=== PATIENT | female | born 1975 | race Caucasian/White ===

== ENCOUNTER 2017-05-25 19:18 | Emergency (ER) | payer OTHER ==
[~2017-05-25] VITALS: Ht 172.7 cm; Wt 79.4 kg
[2017-05-25] MEDS ORDERED: LIDOCAINE 1% PF 30 ML VIAL. INJ ONE (20:00)
[2017-05-25 20:37] VITALS: BP 132/79
--- NOTE | 2017-05-25 20:59 | ED.ADGEN ---
Adult General Chief Complaint Chief Complaint dog bite [facility] HPI pt is a home health nurse. she went to pt's house and pt's dog attacked her on the porch. dog has had immunizations and did not appear sick. she has a bruise to left calf with a 3mm lac Review of Systems Review of Systems Constitutional: Denies fever or chills [] Eyes: Denies change in visual acuity, redness, or eye pain [] HENT: Denies nasal congestion or sore throat [] Respiratory: Denies cough or shortness of breath [] Cardiovascular: No additional information not addressed in HPI [] GI: Denies abdominal pain, nausea, vomiting, bloody stools or diarrhea [] : Denies dysuria or hematuria [] Musculoskeletal: bruising and lac to left calf Integument: Denies rash or skin lesions [] Neurologic: Denies headache, focal weakness or sensory changes [] Endocrine: Denies polyuria or polydipsia [] Current Medications Current Medications Current Medications Medications (Trade) Dose Ordered Sig/Lissett Start Time Stop Time Status Last Admin Dose Admin Diphtheria/ Tetanus/Acell Pertussis (Boostrix) 0.5 ml ONCE ONCE 05/25/17 21:30 05/25/17 21:30 DC 05/25/17 20:45 0.5 ML Lidocaine HCl 30 ml 1X ONCE 05/25/17 20:00 05/25/17 20:01 DC 05/25/17 20:00 30 ML Tetanus/ Diphtheria Toxoids Adsorbed (Tenivac Vial) 0.5 ml ONCE ONCE 05/25/17 21:00 05/25/17 21:07 DC Allergies Allergies Allergies Coded Allergies Type Severity Reaction Last Updated Verified No Known Drug Allergies 05/25/17 No Physical Exam Physical Exam Constitutional: Well developed, well nourished, no acute distress, non-toxic appearance. [] HENT: Normocephalic, atraumatic, bilateral external ears normal, oropharynx moist, no oral exudates, nose normal. [] Eyes: PERRLA, EOMI, conjunctiva normal, no discharge. [] Neck: Normal range of motion, no tenderness, supple, no stridor. [] Cardiovascular:Heart rate regular rhythm, no murmur [] Lungs & Thorax: Bilateral breath sounds clear to auscultation [] Abdomen: Bowel sounds normal, soft, no tenderness, no masses, no pulsatile masses. [] Skin: sunburn to all of body, 1st degree. she has peeling skin over midline chest. still few blisters in this area. no other blistering seen on body. arms and legs with 1st degree burn. [] Back: No tenderness, no CVA tenderness. [] Extremities: , no clubbing, ROM intact, swelling, ecchymosis to left calf with a 1inch x 1 inch area of abrasions with a 3 mm superficial lac Neurologic: Alert and oriented X 3, normal motor function, normal sensory function, no focal deficits noted. [] Psychologic: Affect normal, judgement normal, mood normal. [] Current Patient Data Vital Signs Vital Signs Date Time Temp Pulse Resp B/P (MAP) Pulse Ox O2 Delivery O2 Flow Rate FiO2 05/25/17 19:18 98.2 98 18 98 Room Air EKG EKG [] Radiology/Procedures Radiology/Procedures placed 4 cc of 1% lidocain around abrasions and lac. flushed with 80cc NS. 3mm lac is superficial so no repair. wound cleansing to area as described. 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 she states she knows what to watch for in terms of infection. she is requesting silvadene for sunburn as she is almost out. Final Impression Final Impression dog bite[] Problems: Dragon Disclaimer Dragon Disclaimer This electronic medical record was generated, in whole or in part, using a voice recognition dictation system. Departure Time of Disposition: 20:58 Disposition: HOME, SELF-CARE Condition: IMPROVED Patient Instructions: Animal Bite Additional Instructions: clean daily with soap and water, apply antibiotic ointment and keep covered. return if any sign of infection. take augmentin to avoid infection. tylenol and ibuprofen for pain. DESTINY MARK MD May 25, 2017 20:59
[2017-05-25] MEDS ORDERED: TETANUS AND DIPHTHERIA TOX/PF 0.5 ML VIAL. VAX IM ONE (21:00)
[2017-05-25] MEDS ORDERED: DIPHTH,PERTUSS(ACELL),TET TOX 0.5 ML DISP.SYRIN. VAX IM ONE (21:30)
== END 2017-05-25 21:07 | disposition home or self-care (01) ==
LOC: ER 19:18
DX: S81.812A Laceration without foreign body, left lower leg, initial encounter (principal); W54.0XXA Bitten by dog, initial encounter; Y93.89 Activity, other specified; Y99.8 Other external cause status; Y92.89 Other specified places as the place of occurrence of the external cause
CPT/HCPCS: 90471; 90715; 96372; 99284; J2001

== ENCOUNTER 2020-10-18 17:12 | Emergency (ER) | payer BC, OTHER ==
[~2020-10-18] VITALS: Ht 172.7 cm; Wt 70.0 kg
--- NOTE | 2020-10-18 17:29 | PHYS DOC ---
Past History Past Medical History: No Pertinent History (JAUN CALDWELL MD) Past Surgical History: (JUAN CALDWELL MD) Alcohol Use: Occasionally Drug Use: None (JUAN CALDWELL MD) General Adult EDM: Chief Complaint: ABDOMINAL PAIN HPI: HPI: Patient is a 45-year-old female who presents with chief complaint of epigastric pain. Patient has epigastric pain that radiates to her back that is 10 out of 10 and worse with palpation and certain movements that began yesterday. Patient has a history of peptic ulcer disease and was seen by her roll hand and for evaluation. Patient has nausea but no vomiting. Patient has chronic diarrhea. Patient has any fevers, chills or cough. (JUAN CALDWELL MD) Review of Systems: Review of Systems: Constitutional: Denies fever or chills Eyes: Denies change in visual acuity HENT: Denies nasal congestion or sore throat Respiratory: Denies cough or shortness of breath Cardiovascular: Denies chest pain or edema GI: Complains abdominal pain, nausea and diarrhea : Denies dysuria Musculoskeletal: Complains of back pain or joint pain Integument: Denies rash Neurologic: Denies headache, focal weakness or sensory changes Endocrine: Denies polyuria or polydipsia Lymphatic: Denies swollen glands Psychiatric: Denies depression or anxiety (JUAN CALDWELL MD) Allergies: Allergies: Allergies Coded Allergies Type Severity Reaction Last Updated Verified No Known Drug Allergies 05/25/17 No (JUAN CALDWELL MD) Physical Exam: PE: Constitutional: Well developed, well nourished, appears uncomfortable HENT: Normocephalic, atraumatic, bilateral external ears normal, no trismus nose normal. [] Eyes: PERRLA, EOMI, conjunctiva normal, no discharge. [] Neck: Normal range of motion, no tenderness, supple, no stridor. [] Cardiovascular:Heart rate regular rhythm, no murmur [] Lungs & Thorax: Bilateral breath sounds clear, no respiratory distress Abdomen soft with epigastric tenderness without guarding or rebound, no masses, no pulsatile masses. [] Skin: Warm, dry, no erythema, no rash. [] Back: No tenderness, no CVA tenderness. [] Extremities: No tenderness, no cyanosis, no clubbing, ROM intact, no edema. [] Neurologic: Alert and oriented X 3, normal motor function, normal sensory function, no focal deficits noted. [] Psychologic: Affect normal, judgement normal, mood normal. [] (JUAN CALDWELL MD) EKG: EKG: [] (JUAN CALDWELL MD) Radiology/Procedures: Radiology/Procedures: [] (JUAN CALDWELL MD) Radiology/Procedures: History: Reason: epigastric pain / Spl. Instructions: / History: Comparison: None. Technique: After administration of intravenous contrast, helical CT of the abdomen and pelvis was performed from the lung bases through the ischial tuberosities. Coronal and sagittal reconstructions were obtained. 75 mL of Omnipaque 350 were used. One or more of the following dose reduction techniques were utilized: Automated exposure control (AEC), Adjustment of mA and/or kV according to patient size, Use of iterative reconstruction technique such as ASiR, CT scan done according to ALARA and image gently/image wisely Abdomen Findings: The visualized lung bases are clear. Focal fatty hepatic infiltration along the falciform ligament. The liver, gallbladder, pancreas, spleen, and bilateral adrenal glands are otherwise normal. Symmetric renal enhancement. There is no focal renal mass. There is no hydronephrosis. The visualized loops of small bowel are normal. The visualized loops of large bowel are normal. There is no evidence of bowel obstruction. Appendix is not seen. Moderate to large colonic stool burden. There is no free fluid. There is no mesenteric or retroperitoneal adenopathy. The abdominal aorta is normal in caliber. Pelvis Findings: Urinary bladder is normal. Uterus is present. No pelvic free fluid. There is no pelvic or inguinal adenopathy. There is no acute bony abnormality. IMPRESSION: 1. No acute findings. 2. Moderate to large colonic stool burden. Electronically signed by: Juan Seaman MD (10/18/2020 7:48 PM) [facility] (DEREK SCOTT DO) Heart Score: Risk Factors: Risk Factors: DM, Current or recent (<one month) smoker, HTN, HLP, family history of CAD, obesity. Risk Scores: Score 0 - 3: 2.5% MACE over next 6 weeks - Discharge Home Score 4 - 6: 20.3% MACE over next 6 weeks - Admit for Clinical Observation Score 7 - 10: 72.7% MACE over next 6 weeks - Early Invasive Strategies (JUAN CALDWELL MD) Course & Med Decision Making: Course & Med Decision Making Pertinent Labs and Imaging studies reviewed. (See chart for details) [] Care will be signed over to Dr. Seaman with labs, CT and disposition pending (JUAN CALDWELL MD) Course & Med Decision Making Comprehensive signout obtained from off going physician I personally saw patient and repeated certain aspects of history and physical exam. There is great concern by myself and patient's outpatient roll hand for pancreatitis. CT imaging pursued and ultimately significant for moderate to severe constipation which is likely source of patient's presenting symptoms. Patient has history of this in the past, states she has had poor p.o. intake, poor p.o. fiber intake and stopped taking advised supplements Joint decision to discharge with close outpatient PCP and roll hand follow-up. Patient has EGD and colonoscopy scheduled October 28 which I advised her to keep. Increase p.o. water intake, goal of at least 10 g daily fiber and implementation of Metamucil daily advised Strict return precautions were discussed with good understanding by patient, all questions and concerns addressed prior to ER departure in stable condition (DEREK SCOTT DO) Dragon Disclaimer: Dragon Disclaimer: This electronic medical record was generated, in whole or in part, using a voice recognition dictation system. (JUAN CALDWELL MD) Departure Departure: Impression: Primary Impression: Abdominal pain Additional Impression: Constipation Disposition: DC HOME SELF CARE/HOMELESS Condition: STABLE Referrals: JUAN AMATO MD (PCP) Patient Instructions: Abdominal Pain (Nonspecific), Constipation, Adult Additional Instructions: You were seen for abdominal pain with source likely being constipation based on CT imaging. Make sure to drink plenty of fluids and eat lots of fruits and vegetables. Please aim to ingest at least 10 g of fiber daily. You should use miralax daily to help your bowel movements become more regular. I have discussed your case with your roll hand, please call his office first thing Wednesday morning to follow-up on ER visit this evening and discuss next steps in care. I would advise you to keep your upcoming colonoscopy and EGD as scheduled October 28, 2020. Return to the ED if you develop abdominal pain, fever, black/bloody stools, vomiting, or any other new or concerning symptoms. JUAN CALDWELL MD Oct 18, 2020 17:29 DEREK SCOTT DO Oct 18, 2020 20:21
[2020-10-18] MEDS ORDERED: MORPHINE SULFATE 4 MG/ML DISP.SYRIN. IV ONE (17:30)
[2020-10-18] MEDS ORDERED: ONDANSETRON PF 4 MG/2 ML VIAL. IVP ONE (17:30)
[2020-10-18] MEDS ORDERED: IV NORMAL SALINE 1,000ML 1,000 ML IV ONE (17:30)
[2020-10-18] MEDS ORDERED: HYDROmorphone PF 1 MG/ML DISP.SYRIN IVP ONE (18:45)
[2020-10-18] MEDS ORDERED: IOHEXOL 300 MG/ML 75 ML VIAL. IV ONE (18:45)
[2020-10-18 18:50] VITALS: BP 129/79
[2020-10-18] MEDS ORDERED: CONTRAST GIVEN. MC PRN (19:00)
[2020-10-18] MEDS ORDERED: diphenhydrAMINE 50 MG/ML VIAL ONE (19:02)
[2020-10-18 19:11] LABS: BASO # 0.1 x10^3/uL (0.0-0.2); BASO % 1 % (0-3); EOS # 0.2 x10^3/uL (0.0-0.7); EOS % 2 % (0-3); HEMATOCRIT 40.9 % (36.0-47.0); HEMOGLOBIN 13.4 g/dL (12.0-15.5); LYMPH # 3.5 x10^3/uL (1.0-4.8); LYMPH % 32 % (24-48); MEAN CORPUSCULAR HEMOGLOBIN 31 pg (25-35); MEAN CORPUSCULAR HGB CONC 33 g/dL (31-37); MEAN CORPUSCULAR VOLUME 94 fL (79-100); MONO # 0.8 x10^3/uL (0.0-1.1); MONO % 7 % (0-9); NEUT # 6.4 x10^3uL (1.8-7.7); NEUT % 59 % (31-73); PLATELET COUNT 296 x10^3/uL (140-400); RED BLOOD COUNT 4.37 x10^6/uL (3.50-5.40); RED CELL DISTRIBUTION WIDTH 13.5 % (11.5-14.5); WHITE BLOOD COUNT 10.9 x10^3/uL (4.0-11.0)
[2020-10-18] MEDS ORDERED: diphenhydrAMINE 50 MG/ML VIAL IVP ONE ×2 (19:15→20:15)
[2020-10-18 19:19] LABS: CALCIUM 8.8 mg/dL (8.5-10.1); CREATININE 0.7 mg/dL (0.6-1.0); GFR 91.3; POTASSIUM 3.9 mmol/L (3.5-5.1)
[2020-10-18 19:20] LABS: PREG TEST PT QUAL NEGATIVE (NEG)
[2020-10-18 19:24] LABS: ALBUMIN 3.7 g/dL (3.4-5.0); ALBUMIN/GLOBULIN RATIO 1.1 (1.0-1.7); TOTAL BILIRUBIN 0.3 mg/dL (0.2-1.0); TOTAL PROTEIN 7.1 g/dL (6.4-8.2)
--- NOTE | 2020-10-18 19:50 | RAD ---
CT ABDOMEN+PELVIS W History: Reason: epigastric pain / Spl. Instructions: / History: Comparison: None. Technique: After administration of intravenous contrast, helical CT of the abdomen and pelvis was per formed from the lung bases through the ischial tuberosities. Coronal and sagittal reconstructions wer e obtained. 75 mL of Omnipaque 350 were used. One or more of the following dose reduction techniques were utilized: Automated exposure control (AEC), Adjustment of mA and/or kV according to patient size , Use of iterative reconstruction technique such as ASiR, CT scan done according to ALARA and image g ently/image wisely Abdomen Findings: The visualized lung bases are clear. Focal fatty hepatic infiltration along the falciform ligament. The liver, gallbladder, pancreas, sple en, and bilateral adrenal glands are otherwise normal. Symmetric renal enhancement. There is no focal renal mass. There is no hydronephrosis. The visualized loops of small bowel are normal. The visualized loops of large bowel are normal. There is no evidence of bowel obstruction. Appendix is not seen. Moderate to large colonic stool burden. There is no free fluid. There is no mesenteric or retroperitoneal adenopathy. The abdominal aorta is normal in caliber. Pelvis Findings: Urinary bladder is normal. Uterus is present. No pelvic free fluid. There is no pelvic or inguinal ad enopathy. There is no acute bony abnormality. IMPRESSION: 1. No acute findings. 2. Moderate to large colonic stool burden. Electronically signed by: Aguila Seaman MD (10/18/2020 7:48 PM) [facility]
[2020-10-18 20:42] LABS: BILIRUBIN,URINE NEG (NEG); CLARITY,URINE CLEAR; COLOR,URINE YELLOW; GLUCOSE,URINE NEG (NEG)
[2020-10-18 20:43] LABS: BACTERIA,URINE 0 /HPF (0-FEW); NITRITE,URINE NEG (NEG); RBC,URINE 0 /HPF (0-2); SQUAMOUS EPITHELIAL CELL,UR MANY /LPF; UROBILINOGEN,URINE 0.2 mg/dL (0.2 mg/dL); WBC,URINE OCC /HPF (0-4)
== END 2020-10-18 20:20 | disposition home or self-care (01) ==
LOC: ER 17:12
DX: K59.00 Constipation, unspecified (principal); R10.13 Epigastric pain; R11.0 Nausea; R19.7 Diarrhea, unspecified; Z98.890 Other specified postprocedural states
CPT/HCPCS: 36415; 74177; 80053; 81001; 83690; 84703; 85025; 96361; 96374; 96375; 96376; 99285; J1170; J1200; J2405; J7030; Q9967

== ENCOUNTER 2021-05-27 20:08 | Emergency (ER) | payer BC ==
[~2021-05-27] VITALS: Ht 172.7 cm; Wt 74.5 kg
[2021-05-27] MEDS ORDERED: FAMOTIDINE 20 MG/2 ML VIAL IVP ONE (21:00)
[2021-05-27] MEDS ORDERED: ONDANSETRON PF 4 MG/2 ML VIAL. IVP ONE (21:00)
[2021-05-27] MEDS ORDERED: IV DEXTROSE 5% - 0.9 % NACL 1,000 ML IV ONE (21:00)
[2021-05-27] MEDS ORDERED: KETOROLAC 15 MG/ML VIAL. IVP ONE (21:00)
[2021-05-27 21:04] LABS: CALCIUM 8.5 mg/dL (8.5-10.1); CREATININE 0.8 mg/dL (0.6-1.0); GFR 77.9; POTASSIUM 3.3 mmol/L (3.5-5.1)
[2021-05-27 21:10] LABS: ALBUMIN 3.8 g/dL (3.4-5.0); ALBUMIN/GLOBULIN RATIO 1.2 (1.0-1.7); MAGNESIUM 2.2 mg/dL (1.8-2.4); TOTAL BILIRUBIN 0.2 mg/dL (0.2-1.0)
[2021-05-27] MEDS ORDERED: diphenhydrAMINE 50 MG/ML VIAL IVP ONE (21:15)
[2021-05-27 21:19] LABS: BASO # 0.1 x10^3/uL (0.0-0.2); BASO % 1 % (0-3); EOS # 0.3 x10^3/uL (0.0-0.7); EOS % 2 % (0-3); HEMOGLOBIN 13.7 g/dL (12.0-15.5); LYMPH # 4.4 x10^3/uL (1.0-4.8); LYMPH % 36 % (24-48); MEAN CORPUSCULAR HEMOGLOBIN 30 pg (25-35); MEAN CORPUSCULAR HGB CONC 33 g/dL (31-37); MEAN CORPUSCULAR VOLUME 91 fL (79-100); MONO # 1.1 x10^3/uL (0.0-1.1); MONO % 9 % (0-9); NEUT # 6.4 x10^3uL (1.8-7.7); NEUT % 52 % (31-73); PLATELET COUNT 362 x10^3/uL (140-400); RED BLOOD COUNT 4.53 x10^6/uL (3.50-5.40); RED CELL DISTRIBUTION WIDTH 14.7 % (11.5-14.5); WHITE BLOOD COUNT 12.2 x10^3/uL (4.0-11.0)
--- NOTE | 2021-05-27 23:01 | PHYS DOC ---
Past History Past Medical History: GERD, Migraines, Other Additional Past Medical Histor: EPI, ULCERS, POLYPS Past Surgical History: Smoking: Cigarettes Alcohol Use: Occasionally Drug Use: None General Adult EDM: Chief Complaint: HYPOGLYCEMIA HPI: HPI: 46-year-old female presents with report of episode of unresponsiveness. Patient sister drove patient to the ER after she started to become weaker. Patient has a history of exocrine pancreatic insufficiency in which her blood sugar drops suddenly. Patient reports her blood sugar dropped to 48. Patient did take some glucose and OJ just prior to arrival. Patient does report she ate a meal including fish sandwich, fries, and a large Coke approximately 2 hours prior to arrival. Reports takes her other medications as prescribed. Denies fever or chills. Denies dysuria. Denies known sick contacts. Patient reports the symptoms are indicative of her exocrine pancreatic insufficiency. Review of Systems: Review of Systems: Constitutional: Denies fever or chills Eyes: Denies redness or eye pain HENT: Denies nasal congestion or sore throat Respiratory: Denies cough or shortness of breath Cardiovascular: Denies chest pain or palpitations GI: Reports diffuse abdominal pain and distention; denies nausea or vomiting : Denies dysuria or hematuria Musculoskeletal: Denies back pain or joint pain Integument: Denies rash or skin lesions Neurologic: Denies headache, focal weakness or sensory changes; reports episode of unresponsiveness Complete systems were reviewed and found to be within normal limits, except as documented in this note. Current Medications: Current Meds: Current Medications Medications (Trade) Dose Ordered Sig/[facility] Start Time Stop Time Status Last Admin Dose Admin Dextrose/Sodium Chloride 1,000 ml @ 1,000 mls/hr 1X ONCE 05/27/21 21:00 05/27/21 21:59 DC 05/27/21 21:09 1,000 MLS/HR Diphenhydramine HCl (Benadryl) 50 mg 1X ONCE 05/27/21 21:15 05/27/21 21:23 DC 05/27/21 21:09 50 MG Famotidine (Pepcid Vial) 20 mg 1X ONCE 05/27/21 21:00 05/27/21 21:01 DC 05/27/21 21:10 20 MG Ketorolac Tromethamine (Toradol 15mg Vial) 15 mg 1X ONCE 05/27/21 21:00 05/27/21 21:01 DC 05/27/21 21:10 15 MG Ondansetron HCl (Zofran) 4 mg 1X ONCE 05/27/21 21:00 05/27/21 21:01 DC 05/27/21 21:10 4 MG Allergies: Allergies: Allergies Coded Allergies Type Severity Reaction Last Updated Verified morphine Allergy Unknown 10/18/20 Yes Physical Exam: PE: Constitutional: Well developed, well nourished, no acute distress, non-toxic appearance HENT: Normocephalic, atraumatic Eyes: Conjunctiva normal, no discharge Neck: Normal range of motion, supple Lungs & Thorax: No respiratory distress, equal chest rise and fall Abdomen: Soft, mild tenderness, distention noted Skin: Warm, dry, no erythema, no rash Back: No tenderness, no CVA tenderness Extremities: No tenderness, ROM intact, no edema Neurologic: Alert and oriented X 3, no focal deficits noted Psychologic: Affect normal, judgment normal Current Patient Data: Labs: Laboratory Tests Test 05/27/21 20:20 White Blood Count 12.2 x10^3/uL (4.0-11.0) H Red Blood Count 4.53 x10^6/uL (3.50-5.40) Hemoglobin 13.7 g/dL (12.0-15.5) Hematocrit 41.0 % (36.0-47.0) Mean Corpuscular Volume 91 fL (79-100) Mean Corpuscular Hemoglobin 30 pg (25-35) Mean Corpuscular Hemoglobin Concent 33 g/dL (31-37) Red Cell Distribution Width 14.7 % (11.5-14.5) H Platelet Count 362 x10^3/uL (140-400) Neutrophils (%) (Auto) 52 % (31-73) Lymphocytes (%) (Auto) 36 % (24-48) Monocytes (%) (Auto) 9 % (0-9) Eosinophils (%) (Auto) 2 % (0-3) Basophils (%) (Auto) 1 % (0-3) Neutrophils # (Auto) 6.4 x10^3uL (1.8-7.7) Lymphocytes # (Auto) 4.4 x10^3/uL (1.0-4.8) Monocytes # (Auto) 1.1 x10^3/uL (0.0-1.1) Eosinophils # (Auto) 0.3 x10^3/uL (0.0-0.7) Basophils # (Auto) 0.1 x10^3/uL (0.0-0.2) Sodium Level 142 mmol/L (136-145) Potassium Level 3.3 mmol/L (3.5-5.1) L Chloride Level 106 mmol/L (98-107) Carbon Dioxide Level 24 mmol/L (21-32) Anion Gap 12 (6-14) Blood Urea Nitrogen 15 mg/dL (7-20) Creatinine 0.8 mg/dL (0.6-1.0) Estimated GFR (Cockcroft-Gault) 77.9 BUN/Creatinine Ratio 19 (6-20) Glucose Level 87 mg/dL (70-99) Calcium Level 8.5 mg/dL (8.5-10.1) Magnesium Level 2.2 mg/dL (1.8-2.4) Total Bilirubin 0.2 mg/dL (0.2-1.0) Aspartate Amino Transferase (AST) 19 U/L (15-37) Alanine Aminotransferase (ALT) 22 U/L (14-59) Alkaline Phosphatase 64 U/L (46-116) Total Protein 7.0 g/dL (6.4-8.2) Albumin 3.8 g/dL (3.4-5.0) Albumin/Globulin Ratio 1.2 (1.0-1.7) Lipase 138 U/L (73-393) Vital Signs: Vital Signs Date Time Temp Pulse Resp B/P (MAP) Pulse Ox O2 Delivery O2 Flow Rate FiO2 05/27/21 21:00 74 20 108/59 (75) Room Air 05/27/21 20:29 97.6 98 EKG: EKG: [] Radiology/Procedures: Radiology/Procedures: [] Heart Score: C/O Chest Pain: N/A Course & Med Decision Making: Course & Med Decision Making Pertinent Lab studies reviewed. (See chart for details) Patient with past medical history of exocrine pancreatic insufficiency presents with report of hypoglycemia. Patient reports drinking some glucose prior to arrival. Blood sugar upon arrival stable. Patient also reports some abdominal discomfort/distention which is indicative of exacerbation of her EPI. Dextrose with normal saline provided. Labs obtained and posted to chart. Symptomatic treatment provided with interval improvement. Patient stable for discharge with outpatient follow-up with PCP. Discussed findings and plan with patient, who acknowledges understanding and agreement. Sabino Disclaimer: Sabino Disclaimer: This electronic medical record was generated, in whole or in part, using a voice recognition dictation system. Departure Departure: Impression: Primary Impression: Hypoglycemia Additional Impression: Exocrine pancreatic insufficiency Disposition: HOME / SELF CARE / HOMELESS Condition: STABLE Referrals: JUAN AMATO MD (PCP) Patient Instructions: Hypoglycemia, [id number] PETER GIBBONS DO May 27, 2021 23:00
[2021-05-27 23:08] VITALS: BP 109/76
[2021-05-27 23:17] LABS: BACTERIA,URINE 0 /HPF (0-FEW); BILIRUBIN,URINE NEG (NEG); CLARITY,URINE CLEAR; COLOR,URINE YELLOW; GLUCOSE,URINE 100 mg/dL (NEG); NITRITE,URINE NEG (NEG); RBC,URINE OCC /HPF (0-2); SQUAMOUS EPITHELIAL CELL,UR OCC /LPF; UROBILINOGEN,URINE 0.2 mg/dL (0.2 mg/dL); WBC,URINE OCC /HPF (0-4)
== END 2021-05-27 23:06 | disposition home or self-care (01) ==
LOC: ER 20:08
DX: E16.2 Hypoglycemia, unspecified (principal); K86.89 Other specified diseases of pancreas; K21.9 Gastro-esophageal reflux disease without esophagitis; G43.909 Migraine, unspecified, not intractable, without status migrainosus; F17.210 Nicotine dependence, cigarettes, uncomplicated; Z98.890 Other specified postprocedural states; Z88.5 Allergy status to narcotic agent
CPT/HCPCS: 36415; 80053; 81001; 83690; 83735; 85025; 96365; 96375; 99284; J1200; J1885; J2405; J3490; J7042

== ENCOUNTER → 2021-08-15 | Outpatient (CLI) | payer BC ==
[~2021-08-15] VITALS: Ht 175.3 cm; Wt 73.9 kg
[~2021-08-15] MED LIST: NORMAL SALINE IV ONE; SINCALIDE IV ONE
--- NOTE | 2021-08-15 10:45 | RAD ---
EXAM: Nuclear hepatobiliary scan. HISTORY: Bloating. Pain. TECHNIQUE: Following intravenous administration of 5.3 mCi Tc 99m Choletec, anterior images of the ab domen were obtained at five minute intervals through one hour. Subsequently, 1.48 mcg CCK was adminis tered and additional images to assess gallbladder ejection fraction were obtained. FINDINGS: There is prompt radiotracer uptake by the liver. No focal defect is seen. There is normal e xcretion into the biliary tree. The gallbladder is visualized within 5 minutes and there is free flow into the duodenum. The gallbladder ejection fraction is 86 percent. IMPRESSION: High gallbladder ejection fraction of 86 percent. Electronically signed by: Marilyn Borrero MD (08/15/2021 10:43 AM) [facility]
--- NOTE | 2021-08-15 11:10 | RAD ---
EXAMINATION: US ABDOMEN COMPLETE INDICATION: 46 years, Female, upper abdominal pain and bloating. COMPARISON: 10/18/2020 TECHNIQUE: Grayscale, color Doppler and limited spectral Doppler images of the abdomen were obtained. FINDINGS: LIVER: SIZE (LENGTH): 16.0 cm. ECHOGENICITY: Mildly increased. PARENCHYMA: Homogeneous echotexture. No discrete focal lesion. INTRAHEPATIC BILE DUCTS: Nondilated. PORTAL VEIN: Patent with normal hepatopedal flow. GALLBLADDER: GALLBLADDER WALL THICKNESS: 1.5 mm MORPHOLOGY: Normal morphology. No wall hyperemia or pericholecystic free fluid. LUMEN: Normal. COMMON BILE DUCT DIAMETER: 1.9 mm RIGHT KIDNEY: MEASURES: 11.1 cm in length. MORPHOLOGY/PARENCHYMA: Normal corticomedullary differentiation with no shadowing calculus or discrete masses. COLLECTING SYSTEM: No hydronephrosis. LEFT KIDNEY: MEASURES: 12.4 cm in length MORPHOLOGY/PARENCHYMA: Normal corticomedullary differentiation with no shadowing calculus or discrete masses. COLLECTING SYSTEM: No hydronephrosis. SPLEEN: SIZE (LENGTH): 9.3 cm PARENCHYMA: Unremarkable. PANCREAS: VISUALIZED PORTIONS: Entire. APPEARANCE: Within normal limits. OTHER: RETROPERITONEUM, INFERIOR VENA CAVA: Normal caliber. AORTA: Normal caliber measures up to 1.8 cm FLUID:No free fluid. IMPRESSION: 1. No acute sonographic findings in the upper abdomen. 2. Mild diffuse hepatic steatosis. Electronically signed by: Rakesh Orona MD (08/15/2021 11:07 AM) [id number]
== END ==
LOC: US 08:04
PROVIDERS: ATTEND Physician Assistant
DX: K76.0 Fatty (change of) liver, not elsewhere classified (principal)
CPT/HCPCS: 76700; 78227; A9537; J2805